=== PATIENT | female | born 1975 | race Caucasian/White ===

== ENCOUNTER 2020-07-25 19:47 | Emergency (ER) | payer SELFPAY ==
[~2020-07-25] VITALS: Ht 182.9 cm; Wt 84.9 kg
[2020-07-25 20:22] LABS: BASOPHILS % (AUTO) 1 % (0-1); EOSINOPHILS % (AUTO) 3 % (1-7); LYMPHOCYTES % (AUTO) 36 % (22-44); MEAN CORPUSCULAR HGB CONC 32.9 g/dL (32.4-35.8); MEAN PLATELET VOLUME 8.2 fL (7.4-10.4); MONOCYTES % (AUTO) 9 % (2-9); NEUTROPHILS % (AUTO) 51 % (42-75); PLATELET COUNT 334 x10^3/uL (130-400); RED BLOOD COUNT 4.71 x10^6/uL (3.82-5.3); RED CELL DISTRIBUTION WIDTH 13.2 % (9.6-15.2)
[2020-07-25 20:23] LABS: MD NO
[2020-07-25 20:32] LABS: ANION GAP 5 mmol/L (5-15); CALCIUM 8.9 mg/dL (8.5-10.1); CHLORIDE 106 mmol/L (98-107); CREATININE 0.87 mg/dL (0.55-1.02)
--- NOTE | 2020-07-25 21:23 | NUR ---
PATIENT WALKED BACK FROM TRIAGE WITH CHIEF C/O MIGRAINE X4 DAYS. PATIENT REPORTS LEFT EYE FEELS "FROZEN," AND LEFT FACIAL NUMBNESS. PATIENT ENDORSES HISTORY OF MIGRAINES, BUT "THEY HAVE NEVER LASTED THIS LONG BEFORE." PATIENT DENIES N/V. NO SIGNS OF ACUTE DISTRESS, CONNECTED TO VITALS SIGN, CALL LIGHT WITHIN REACH.
--- NOTE | 2020-07-25 22:24 | NUR ---
PATIENT SITTING IN GURNEY WATCHING TV, NO SIGNS OF ACUTE DISTRESS, CALL LIGHT WITHIN REACH. MRI SCREENING FORM COMPLETED.
[2020-07-25] MEDS ORDERED: SODIUM CHLORIDE FLUSH 10ML SYR IVF ONE (22:30)
--- NOTE | 2020-07-25 22:46 | NUR ---
PATIENT TO MRI.
[2020-07-25] MEDS ORDERED: GADOTERATE 10 MMOL/20 ML SYR ONE (22:58)
--- NOTE | 2020-07-25 23:16 | NUR ---
PATIENT STILL IN MRI.
[2020-07-25 23:27] VITALS: BP 118/65
--- NOTE | 2020-07-25 23:27 | NUR ---
PATIENT BACK FROM MRI, SITTING IN GURNEY WATCHING TV, NO SIGNS OF ACUTE DISTRESS, CONNECTED TO VITALS MACHINE, CALL LIGHT WITHIN REACH.
--- NOTE | 2020-07-25 23:46 | NUR ---
ER PROVIDER AT BEDSIDE TO DISCUSS POC AND D/C.
[2020-07-25] MEDS ORDERED: OMNIPAQUE 350 MG/ML, 100ML BOTTLE ONE (23:59)
--- NOTE | 2020-07-25 23:59 | NUR ---
Patient given discharge instructions and prescription they have confirmed that they understand the instructions. All patient belongings gathered and taken with patient. Patient in stable condition ambulatory with steady gait from ED.
== END 2020-07-26 | disposition home or self-care (01) ==
LOC: ED 21:36
DX: G43.709 Chronic migraine without aura, not intractable, without status migrainosus (principal); R11.0 Nausea
CPT/HCPCS: 36415; 70450; 70553; 80048; 84703; 85025; 99285; A9575; Q9967

== ENCOUNTER 2020-12-07 21:00 | Emergency (ER) | payer SELFPAY ==
[~2020-12-07] VITALS: Ht 182.9 cm; Wt 87.8 kg
[2020-12-07 21:47] VITALS: BP 117/72
--- NOTE | 2020-12-07 22:01 | NUR ---
PT RESTING IN ROOM. NO ACUTE DISTRESS NOTED. CALL LIGHT IN PLACE. WILL CONTINUE TO MONITOR
== END 2020-12-07 22:18 | disposition home or self-care (01) ==
LOC: ED 22:15
DX: S16.1XXA Strain of muscle, fascia and tendon at neck level, initial encounter (principal); G43.909 Migraine, unspecified, not intractable, without status migrainosus; G89.29 Other chronic pain; W18.30XA Fall on same level, unspecified, initial encounter; Y93.89 Activity, other specified; Y92.009 Unspecified place in unspecified non-institutional (private) residence as the place of occurrence of the external cause; Y99.8 Other external cause status
CPT/HCPCS: 72050; 99283